=== PATIENT | male | born 1990 | race Caucasian/White ===

== ENCOUNTER 2016-11-23 10:42 | Emergency (ER) | payer MEDICAID ==
--- NOTE | ~2016-11-23 | ER ---
PATIENT'S NAME: MADISON RUANO [facility] AGE: 26 Y [address] ROOM: [place] [id number] LOCATION: [facility] ADMIT DATE: 11/23/2016 ER/Outpatient Report DISCHARGE DATE: 11/23/2016 FAMILY PHYSICIAN: Faisal Smith MD ATTENDING PHYSICIAN: Bernabe Paul He was seen at 1100 hours. CHIEF COMPLAINT: Fracture tooth infection. HISTORY OF PRESENT ILLNESS: The patient is a 26-year-old male who said he had a left front molar fracture about 4-5 days ago, then over the last 2 days, he started noticing some swelling in his left cheek, and denied any fevers. He had taken a couple of amoxicillin that he had at home. ALLERGIES: NO MEDICINAL ALLERGIES. HOME MEDICATIONS: Include, 1. Tramadol as needed. 2. Fluoxetine. MEDICAL HISTORY: Includes depression. SURGERIES: He has had several surgeries involving his knees and hernias. SOCIAL HISTORY: Smoker of 5 cigarettes a day. Alcohol, none. REVIEW OF SYSTEMS: GENERAL: No fevers or chills. HEAD AND EENT: Include some left cheek swelling, painful left upper molar. Denied any sore throat, neck pain, swollen glands. SKIN: No recent eruptions. OBJECTIVE FINDINGS: VITAL SIGNS: Temperature is 99, respiratory rate 20, pulse 87, and O2 saturations 97%. GENERAL APPEARANCE: He presented with a cane. He is oriented x3. HEENT: Exam of his mouth showed a tender left upper molar, especially to PATIENT'S NAME: MADISON RUANO [facility] AGE: 26 Y [address] ROOM: [place] [id number] LOCATION: [facility] ADMIT DATE: 11/23/2016 ER/Outpatient Report DISCHARGE DATE: 11/23/2016 FAMILY PHYSICIAN: Faisal Smith MD ATTENDING PHYSICIAN: Bernabe Paul percussion. Posterior pharynx was clear. NECK: No adenopathy. FACE: Left cheek appeared to have some soft tissue swelling. No redness. ASSESSMENT: Probable left front upper molar abscess. PLAN: Cleocin 300 mg, advised to take 2 initially, then 1 every 6-8 hours. [place] for pain 5/325 one or two every 4-6 hours as needed. Strongly recommend to follow up with his dentist within the next 48 hours. The patient agreed with our findings and recommendations. GLENNY STODDARD FOR MD ESTELA DEL RIO/praful /[id number] d: 11/23/161 t: 12/01/16 1721, OUTPATIENT REPORT
== END 2016-11-23 11:13 | disposition disaster alternative care site (69) ==
LOC: GMED 10:42
DX: R22.0 Localized swelling, mass and lump, head (principal); F32.9 Major depressive disorder, single episode, unspecified; F17.210 Nicotine dependence, cigarettes, uncomplicated